=== PATIENT | male | born 1975 | race Caucasian/White ===

== ENCOUNTER → 2016-09-16 | Outpatient (CLI) | payer OTHER ==
[~2016-09-16] MED LIST: ALEVE220 MG PO; AMARYL4 MG PO; BACITRACIN1 PKT TOP; INVOKANA300 MG PO; LEVAQUIN 750 M750 MG PO; LISINOPRIL-HCT1 EAC1 PO; NEURONTIN300 MG PO; NORCO 10-325 T1 EACH PO; ULTRAM50 MG PO; XANAX0.5 MG PO
== END | disposition disaster alternative care site (69) ==
LOC: GRAD 10:15
DX: R51 Headache (principal)

== ENCOUNTER 2016-11-09 19:36 | Emergency (ER) | payer SELFPAY ==
--- NOTE | ~2016-11-09 | ER ---
PATIENT'S NAME: LENIN STEPHENS [facility] AGE: 41 Y [address] ROOM: [place] [address] LOCATION: [facility] ADMIT DATE: 11/09/2016 ER/Outpatient Report DISCHARGE DATE: 11/09/2016 FAMILY PHYSICIAN: Amauri Mcclelland MD ATTENDING PHYSICIAN: Trino Bray Admission date and time are documented in the medical record. I saw the patient at 1945 hours. CHIEF COMPLAINT: Low back pain more in the left low back with sciatica to the midcalf. HISTORY OF PRESENT ILLNESS: The patient is a 41-year-old male who earlier today was unfolding a lawn chair, he bent over, felt a grabbing sensation in his left buttock area, left low back area. Tightened, had severe pain, dropped him into his knee, had about a 10 minute timeline of trying to get backup. He now has lower left low back pain radiating down his left leg to the midcalf. No bowel or bladder dysfunction. Does have a history of degenerative disk disease. His last flare up of his back was in August of this year. He has had 2 previous MRIs that just showed degenerative disk disease. This pain today has been worse than normal. No recent coughs, colds, flus, fever, chills, or sweats. No chest pain or shortness of breath. No abdominal pain, nausea, vomiting, or diarrhea. No urinary frequency, urgency, or dysuria. No other joint or muscle swelling, redness, or pain. No skin eruptions or rash. Does have some neuropathy in his lower extremities. Does have ocu-cvtkgrt-bendctpni diabetes mellitus type 2. Does have depression and anxiety. HOME MEDICATIONS: See attached medication list. ALLERGIES: NONE. SOCIAL HISTORY: Nonsmoker. Occasional intake of alcohol. SIGNIFICANT PAST MEDICAL HISTORY: Degenerative disk disease, degenerative osteoarthritis, scz-shwlwjq-pdkqvwcys diabetes mellitus type 2, hypertension, depression, anxiety, fractured right femur, and previous back injuries. OPERATIONS: Appendectomy, tonsillectomy, open reduction and internal fixation of right femur fracture, heart cath, right foot surgery, and herniorrhaphy. PATIENT'S NAME: LENIN STEPHENS [facility] AGE: 41 Y [address] ROOM: [place] [address] LOCATION: [facility] ADMIT DATE: 11/09/2016 ER/Outpatient Report DISCHARGE DATE: 11/09/2016 FAMILY PHYSICIAN: Amauri Mcclelland MD ATTENDING PHYSICIAN: Trino Bray REVIEW OF SYSTEMS: All systems reviewed by me are negative with the exception of those discussed in the history of present illness. PHYSICAL EXAMINATION: VITAL SIGNS: Temperature 97.8, pulse 102, respirations 16, blood pressure 180/109, and O2 sat on room air is 98%. LUNGS: Clear. HEART: Regular. ABDOMEN: Soft, nontender. Good bowel tones. MUSCULOSKELETAL: Tenderness in the left low back. Positive straight leg raising, left-side. Neurovascularly intact. Pulse intact. Capillary refill intact. IMPRESSION: 1. Left low back pain with left sciatica with a history of degenerative disk disease. 2. Peripheral neuropathy. 3. Knm-wtylvta-oqxwxrfjp diabetes mellitus type 2. 4. Hypertension. PLAN: The patient was given Dilaudid 1 mg, Solu-Medrol 125 mg, and Toradol 60 mg IM in the emergency department. Dismissed home. Observation. Activity as tolerated. Avoid lifting, pushing, and pulling. Ice, heat, or combination to sore areas of the back as needed. [place] 7.5/325 as needed for pain. Flexeril 10 mg 3 times a day. Medrol Dosepak take as directed. Physical therapy as needed. Follow up with personal physician in 5 to 7 days. If no improvement, may need to see a spine surgeon, possibly get an MRI of his lumbar spine. Discussion ensued with the patient concerning my findings and recommendations, he understands. MD ONEAL CRUZ/modl /[id number] d: 11/10/16 0046 t: 11/10/16 1833, OUTPATIENT REPORT
== END 2016-11-09 20:22 | disposition disaster alternative care site (69) ==
LOC: GACC 19:36
DX: M54.42 Lumbago with sciatica, left side (principal); E11.42 Type 2 diabetes mellitus with diabetic polyneuropathy; I10 Essential (primary) hypertension; M19.90 Unspecified osteoarthritis, unspecified site; F32.9 Major depressive disorder, single episode, unspecified; F41.9 Anxiety disorder, unspecified; M51.37 Other intervertebral disc degeneration, lumbosacral region; Z90.49 Acquired absence of other specified parts of digestive tract; Z79.899 Other long term (current) drug therapy
CPT/HCPCS: J1170; J1885; J2930